=== PATIENT | female | born 1955 | race Caucasian/White ===

== ENCOUNTER 2023-03-14 07:22 | Day surgery (SDC) | payer OTHER, MEDICARE ==
[~2023-03-14] VITALS: Ht 154.9 cm; Wt 86.2 kg
[~2023-03-14 07:22] MED LIST: ALBU90OI6 INH; ALBU90OI61 INH; ASCO500 PO; ASPI81EC PO; BUPR150ER PO; CEPH500 PO; CYAN1000I IM; CYCL10 PO; Calcium + Vita1 EACH PO; DOCU100 PO; ESTR2 PO; FAMO20 PO; FISH1000 PO; Fergon240 M1 PO; Flomax0.4 MG PO; HYDACE7.5 PO; Hydrocodone-Ap1 EA20 PO; IBUP800 PO; INSUGL100V SC; INSULANPEN SC; LEVFLO500 PO; LOVA20 PO; LOVA40 PO; Lisinopril-Hct1 EAC4 PO; MELO7.5 PO; METF500 PO; Multivitamin1 EAC1 PO; Norco 5-325 Ta1 EACH PO; OMEP40CA12 PO; Omega 3 Fish O1 EACH PO; PARO20 PO; PARO30 PO; PREG100 PO; PREG200 PO; PROP10 PO; Sleep Aid25 M1 PO; Tylenol325 MG PO; VITAMIN D-32000 UNIT PO; ZESTORETIC 20-251 EA PO; Zofran Odt4 MG PO; [UNRECOGNIZED DRUG - OTHER] PO
[2023-03-14 08:18] VITALS: BP 109/70
--- NOTE | 2023-03-14 08:38 | NUR ---
PT TO SDS VIA WC. PER PT, SHE CAN AMBULATE WITHOUT ASSISTANCE BUT USES THE WC FOR LONG DISTANCES. History, Chart, Medications and Allergies reviewed before start of procedure. Lungs clear T/O to Auscultation. PT STATES SHE HAS NOT EATEN ANYTHING SINCE YESTERDAY, BUT DID TAKE A DRINK OF WATER THIS AM. DR ESCALANTE NOTIFIED AND OKAY TO PROCEED. Pre-Op teaching done. Pt verbalizes understanding. Patient States Post-Procedure ride home has been arranged. PT BLOOD SUGAR OF [address] ESCALANTE, NO FURTHER ORDERS, OKAY TO PROCEED.
--- NOTE | 2023-03-14 08:53 | NUR ---
03/14/23 0853 Ruby Donnelly 0849- MONITOR INTACT WITH CONTINUOUS PULSE OXIMETRY, CONTINUOUS END TITAL CO2, AND INTERMITTENT BLOOD PRESSURE.
[2023-03-14 09:20] VITALS: BP 114/70
[2023-03-14 09:27] VITALS: BP 116/86
--- NOTE | 2023-03-14 09:41 | NUR ---
DISCHARGE PT A&OX4, VSS/RA, JESUS PO, IV DC'D, DC INS PROVIDED, PT REP UNDERSTANDING THOSE INSTRUCTIONS. LEFT VIA WC WITH ALL PERSONAL POSSESSIONS TO GO HOME. AUTOMOBILE DETAILER DID NOT ANSWER PHONE CALL, PT WAITING IN WAITING AREA OUTSIDE DAYSURGERY.
== END 2023-03-15 22:32 | disposition home or self-care (01) ==
LOC: ORSCMMR 07:22 → ORD 08:45 → ORSCMMR 08:45 → ORD 10:00 → ORSCMMR 03-15 22:32
PROVIDERS: Internal Medicine Gastroenterology
PROC: 0DBL8ZX Excision of Transverse Colon, Via Natural or Artificial Opening Endoscopic, Diagnostic (ICD-10-PCS; principal; 2023-03-14 08:45)
DX: R19.7 Diarrhea, unspecified (principal); Z86.010 Personal history of colon polyps; D12.3 Benign neoplasm of transverse colon; K57.30 Diverticulosis of large intestine without perforation or abscess without bleeding; K64.8 Other hemorrhoids; K21.9 Gastro-esophageal reflux disease without esophagitis; E11.9 Type 2 diabetes mellitus without complications; J44.9 Chronic obstructive pulmonary disease, unspecified; G47.33 Obstructive sleep apnea (adult) (pediatric); E66.9 Obesity, unspecified; Z68.35 Body mass index [BMI] 35.0-35.9, adult
CPT/HCPCS: 82947; 88305; J2704; J7120

== ENCOUNTER 2023-06-06 23:17 | Inpatient (IN) | payer OTHER, MEDICARE ==
[~2023-06-06] VITALS: Ht 154.9 cm; Wt 87.0 kg
[~2023-06-06 23:17] MED LIST changes: -INSUGL100V SC; +INSULIN GL100 UNIT/2 SC
[2023-06-07 00:42] LABS: BASOPHILS ABSOLUTE AUTO 0.02 K/mm3 (0.00-0.23); BASOPHILS PERCENT AUTO 0 % (0-2); EOSINOPHILS ABSOLUTE AUTO 0.07 K/mm3 (0.00-0.68); EOSINOPHILS PERCENT AUTO 1 % (0-6); Hemoglobin 12.1 g/dL (11.5-16.0); IMMATURE GRAN ABSOLUTE AUTO 0.09 K/mm3 (0.00-0.10); IMMATURE GRAN PERCENT AUTO 1 % (0-1); LYMPHOCYTES ABSOLUTE AUTO 1.92 K/mm3 (0.84-5.20); LYMPHOCYTES PERCENT AUTO 15 % (21-46); MONOCYTES ABSOLUTE AUTO 0.75 K/mm3 (0.16-1.47); MONOCYTES PERCENT AUTO 6 % (4-13); Mean Corpuscular HGB 30.2 pg (26.0-34.0); Mean Corpuscular HGB Conc 33.6 g/dL (31.5-36.5); Mean Corpuscular Volume 90 fL (80-100); Mean Platelet Volume 11.1 fL (9.1-12.4); NEUTROPHILS ABSOLUTE AUTO 9.89 K/mm3 (1.96-9.15); NEUTROPHILS PERCENT AUTO 78 % (41-73); Platelet Count 343 K/mm3 (150-400); RDW Coefficient Variation 13.8 % (11.7-14.2); RDW Standard Deviation 45.3 fL (35.1-46.3); Red Blood Cell Count 4.01 M/mm3 (3.80-5.20); White Blood Cell Count 12.74 K/mm3 (4.00-11.30)
[2023-06-07 01:03] LABS: Base Excess Venous -7.5 mmol/L; Bicarbonate Venous 18.5 mmol/L (24.0-30.0); PCO2 Venous 40.7 mmHg (38-42); pH Blood Venous 7.28 (7.34-7.37)
[2023-06-07 01:13] LABS: Albumin, Blood 2.9 g/dL (3.4-5.0); Albumin/Globulin Ratio 0.5 (0.8-1.8); Beta-hydroxybutyrate 5.1 mg/dL (0.2-2.8); Bilirubin, Total 0.2 mg/dL (0.1-1.0); Calcium, Blood 8.9 mg/dL (8.5-10.1); Creatinine, Blood 4.11 mg/dL (0.40-1.00); Globulin, Blood 5.3 g/dL (2.2-4.0); Magnesium, Blood 1.7 mg/dL (1.6-2.4); Phosphorus, Blood 3.4 mg/dL (2.5-4.9); Potassium, Blood 4.7 mmol/L (3.5-5.5); Thyroid Stimulating Hormone 0.327 uIU/mL (0.360-4.800); Total Protein, Blood 8.2 g/dL (6.4-8.2)
[2023-06-07 03:05] LABS: Influenza A, PCR NEGATIVE (NEGATIVE); Influenza B, PCR NEGATIVE (NEGATIVE); Resp Syncytial Virus, PCR NEGATIVE (NEGATIVE); SARS-Cov-2 (COVID-19) PCR, MMC NEGATIVE (NEGATIVE)
[2023-06-07 04:00] VITALS: BP 148/108
[2023-06-07 04:39] LABS: BASOPHILS ABSOLUTE AUTO 0.03 K/mm3 (0.00-0.23); BASOPHILS PERCENT AUTO 0 % (0-2); EOSINOPHILS ABSOLUTE AUTO 0.08 K/mm3 (0.00-0.68); EOSINOPHILS PERCENT AUTO 1 % (0-6); Hematocrit 32.6 % (33.0-51.0); IMMATURE GRAN ABSOLUTE AUTO 0.08 K/mm3 (0.00-0.10); IMMATURE GRAN PERCENT AUTO 1 % (0-1); LYMPHOCYTES ABSOLUTE AUTO 1.96 K/mm3 (0.84-5.20); LYMPHOCYTES PERCENT AUTO 18 % (21-46); MONOCYTES ABSOLUTE AUTO 0.74 K/mm3 (0.16-1.47); MONOCYTES PERCENT AUTO 7 % (4-13); Mean Corpuscular HGB Conc 33.7 g/dL (31.5-36.5); Mean Corpuscular Volume 89 fL (80-100); Mean Platelet Volume 11.1 fL (9.1-12.4); NEUTROPHILS ABSOLUTE AUTO 8.32 K/mm3 (1.96-9.15); NEUTROPHILS PERCENT AUTO 74 % (41-73); Platelet Count 311 K/mm3 (150-400); RDW Coefficient Variation 13.7 % (11.7-14.2); RDW Standard Deviation 44.9 fL (35.1-46.3); Red Blood Cell Count 3.67 M/mm3 (3.80-5.20); White Blood Cell Count 11.21 K/mm3 (4.00-11.30)
[2023-06-07 04:54] LABS: Source, Urine Clean Catch
[2023-06-07 05:01] LABS: Albumin, Blood 2.7 g/dL (3.4-5.0); Albumin/Globulin Ratio 0.6 (0.8-1.8); Bilirubin, Total 0.3 mg/dL (0.1-1.0); Bun/Creatinine Ratio 20.1 (12.0-20.0); Calcium, Blood 8.7 mg/dL (8.5-10.1); Creatinine, Blood 3.38 mg/dL (0.40-1.00); Globulin, Blood 4.9 g/dL (2.2-4.0); Potassium, Blood 4.4 mmol/L (3.5-5.5); Total Protein, Blood 7.6 g/dL (6.4-8.2)
[2023-06-07 05:09] LABS: Bilirubin, Urine Neg (Neg); Blood, Urine 1+ (Neg); Glucose Qualitative, Urine 3+ (Neg); Ketones, Urine Neg (Neg); Leukocyte Esterase, Urine Neg (Neg); Nitrite, Urine Neg (Neg); Protein, Urine 2+ (Neg); Specific Gravity, Urine 1.015 (1.003-1.022); Urobilinogen, Urine NORM (Normal)
[2023-06-07 05:18] LABS: Appearance, Urine Clear (Clear); Color, Urine Yellow (P-Yellow)
[2023-06-07 05:20] LABS: Bacteria Not Seen /hpf; Red Blood Cells, Urine 0-2 /hpf (0-2); Squamous Epithelial Cells Rare /hpf (Few); White Blood Cells, Urine 0-2 /hpf (0-5)
--- NOTE | 2023-06-07 06:35 | NUR ---
EOS: NO CHANGES FROM ADMISSION ASSESSMENT WHICH MEDICATION RECONCILLIATIONIS INCOMPLETE PATIENT IS MINORLY POOR HISTORIAN WITH DOSING, SHE IS GOING TO CALL HER DAUGHTER TO BRING IN UPDATED MEDLIST. PATIENT A/O X 3-4 WITH VERY LIMITED ROM OF BUE AND BLE. NECK SPECIFICALLY IS LIMITED IWHT INCREASED PAIN, DENIES CHEST PAIN PRESSURE OR SOB. PATIENT WAS MINORLY RETAINING URINE, ABLE TO VOID, PURWICK IN PLACE, TOLERATING WELL, CURRENLTY INFUSING LR AND SLEEPING COMFORTABLY AFTER TREATMENT WITH TYLENOL AND REPOSITIONING.
[2023-06-07 07:32] VITALS: BP 132/73
[2023-06-07 08:28] LABS: Percent Saturation 11.1 % (15.0-50.0)
[2023-06-07 11:50] VITALS: BP 136/82
--- NOTE | 2023-06-07 14:19 | NUR ---
1200 UPDATE PT REMAINS A/OX4 WITH LIMITED ROM D/T PAIN. PT ABLE TO AMBULATE TO THE BATHROOM USINF FWW/GB AND 1-2 PER ASSIST. PT WAS ABLE TO GET INTO THE SHOWER WITH ASSISTANCE. PT CONTINUES TO ENDORSE GENERALIZED PAIN WITH NO RELIEF FROM TYLENOL. NOTIFIED AND LOW ORDERED. LR RUNNING PER ORDER, NS TO RUN AFTER LR IS COMPLETE PER FORTUNATO RAMSEY. PT ABLE TO MOVE SELF IN BED SLOWLY TO REPORSITION HER SELF, REQURING BOSTING IN BED FOR COMFORT. DAUGHTER AT BEDSIDE.
[2023-06-07 16:01] VITALS: BP 139/73
--- NOTE | 2023-06-07 16:53 | NUR ---
SHIFT SUMMARY PT A/OX4 AND COOPERATIVE OF CARE. PT ABLE TO EXPRESS NEEDS AND CALLS APPROPIATELY. PT VSS THROUGHOUT SHIFT WITH O2 SATS IN THE 90'S ON RA. PT CONTINUED TO HAVE LIMITED ROM OF EXTREMITIES, TREATED WITH TYLENOL, NO RLIEF. MD ORDERED NORCO, SEE ORDERS, PT REPORTS SOME RELIEF. HEAT PAD APPLIED FOR NECK PAIN. PT ABLE TO AMBULATE TO THE BATHROOM USING FWW/GB AND 1 STAFF MEMBER TO MANAGE LINES. PUREWICK IN PLACE, YELLOW URINE. NS RUNNING PER ORDER.
[2023-06-07 20:01] VITALS: BP 122/70
[2023-06-08 00:45] VITALS: BP 133/94
--- NOTE | 2023-06-08 00:52 | NUR ---
ASSUMPTION OF CARE: PATIENT IS ALERT AND ORIENTED, PAIN HAS BEEN VARYING, APPEARS TO CONTROLLED WITH THE NORCO. VSS. AFEBRILE. PATIENT HAS BEENS COOPERATIVE WITH CARE. 1 PERSON ASSIST WITH FWW PATIENT SLOW BUT IMPROVING. DENIES CHEST APIN PRESSURE OR SOB. INFUSING NS. NO ACTIVE CONCERNS FROM PATIENT AT THIS TIME. SPO2 >98% ON RA. DENIES NEED FOR BM, PURWICK AND ATTENDS IN PLACE.
--- NOTE | 2023-06-08 04:12 | NUR ---
EOS: NO CHANGES FROM ASSUMPTION OF CARE. RECOMMEND STATUS CHANGE. DENIES CHEST PAIN PRESSURE OR SOB. WILL CONTINUE TO MONITOR. VSS. NS STILL INFUSING.
[2023-06-08 04:39] VITALS: BP 134/74
[2023-06-08 05:30] LABS: Hematocrit 33.6 % (33.0-51.0); Hemoglobin 11.3 g/dL (11.5-16.0); Mean Corpuscular HGB 29.8 pg (26.0-34.0); Mean Corpuscular HGB Conc 33.6 g/dL (31.5-36.5); Mean Corpuscular Volume 89 fL (80-100); Platelet Count 338 K/mm3 (150-400); RDW Coefficient Variation 13.6 % (11.7-14.2); RDW Standard Deviation 44.6 fL (35.1-46.3); Red Blood Cell Count 3.79 M/mm3 (3.80-5.20)
[2023-06-08 05:56] LABS: Albumin, Blood 2.7 g/dL (3.4-5.0); Anion Gap 7 mmol/L (6-16); Blood Urea Nitrogen 47 mg/dL (8-24); Bun/Creatinine Ratio 28.5 (12.0-20.0); CO2, Blood 22 mmol/L (21-32); Calcium, Blood 9.3 mg/dL (8.5-10.1); Chloride, Blood 111 mmol/L (98-108); Creatinine, Blood 1.65 mg/dL (0.40-1.00); Glomerular Filtration Rate 34 (60-); Glucose, Blood 163 mg/dL (70-99); Magnesium, Blood 1.6 mg/dL (1.6-2.4); Phosphorus, Blood 2.6 mg/dL (2.5-4.9); Potassium, Blood 4.4 mmol/L (3.5-5.5); Sodium, Blood 140 mmol/L (136-145)
[2023-06-08 07:11] VITALS: BP 131/89
--- NOTE | 2023-06-08 09:42 | NUR ---
AM NOTE: PATIENT ALERT AND ORIENTED X4. ON ROOM AIR SATING ABOVE 95%. DENIES SOB. TELE SHOWING SR WITH LBBB. BP STABLE. DENIES CHEST PAIN/PRESSURE. BOWEL TONES PRESENT. UP TO BATHROOM WITH ONE PERSON AND WALKER. EATING AND VOIDING WNL. IV FLUIDS CONTINUE TO INFUSE. CALL LIGHT IN REACH. UP IN RECLINER. DR. BUCIO AND DR. GODWIN BY THIS AM. POSSIBLE DC THIS AFTERNOON.
[2023-06-08] MEDS ORDERED: OMEP20ER PO (11:04)
--- NOTE | 2023-06-08 11:52 | NUR ---
DISCHARGE: NO ACUTE CHANGES, SISTER AT BEDSIDE FOR DISCHARGE. THIS RN EDUCATED ON STOPPED MEDICATIONS, DOSE CHANGE TO INSULIN, FOLLOW UP APPOINTMENTS AND SIGNS/SYMPTOMS OF WHEN TO RETURN. IV'S REMOVED WNL. PATIENT LEFT UNIT WITH ALL PERSONAL BELONGINGS AND DISCHARGE PACKET VIA WHEELCHAIR.
== END 2023-06-08 11:40 | disposition home or self-care (01) | DRG 683 ==
LOC: ER 23:17 → PCU 06-07 03:32
PROVIDERS: Emergency Medicine; Internal Medicine Nephrology; ADMIT Student in an Organized Health Care Education/Training Program
DX: N17.9 Acute kidney failure, unspecified (principal); E87.1 Hypo-osmolality and hyponatremia; E87.20 Acidosis, unspecified; G89.29 Other chronic pain; N18.9 Chronic kidney disease, unspecified; F32.A Depression, unspecified; E11.22 Type 2 diabetes mellitus with diabetic chronic kidney disease; I44.7 Left bundle-branch block, unspecified; E66.9 Obesity, unspecified; K57.30 Diverticulosis of large intestine without perforation or abscess without bleeding; E03.8 Other specified hypothyroidism; N20.0 Calculus of kidney; I12.9 Hypertensive chronic kidney disease with stage 1 through stage 4 chronic kidney disease, or unspecified chronic kidney disease; E86.0 Dehydration; E11.40 Type 2 diabetes mellitus with diabetic neuropathy, unspecified; D63.1 Anemia in chronic kidney disease; E78.5 Hyperlipidemia, unspecified; K52.9 Noninfective gastroenteritis and colitis, unspecified; K64.8 Other hemorrhoids; R56.9 Unspecified convulsions; E88.09 Other disorders of plasma-protein metabolism, not elsewhere classified; R31.29 Other microscopic hematuria; D72.829 Elevated white blood cell count, unspecified; Z88.8 Allergy status to other drugs, medicaments and biological substances; Z88.6 Allergy status to analgesic agent; Z79.4 Long term (current) use of insulin; Z79.84 Long term (current) use of oral hypoglycemic drugs; Z79.1 Long term (current) use of non-steroidal anti-inflammatories (NSAID); Z79.891 Long term (current) use of opiate analgesic; Z68.34 Body mass index [BMI] 34.0-34.9, adult
CPT/HCPCS: 0241U; 36415; 71046; 76770; 80053; 80069; 81001; 82010; 82570; 82728; 82803; 82947; 83036; 83540; 83550; 83735; 84100; 84300; 84439; 84443; 84484; 85025; 85027; 93005; 93010; 94760; 96360; 99285-25; A9270; J1644; J1815; J7030; J7120

== ENCOUNTER 2023-08-01 12:35 | Inpatient (IN) | payer OTHER, MEDICARE ==
[~2023-08-01] VITALS: Ht 165.1 cm; Wt 90.4 kg
[~2023-08-01 12:35] MED LIST changes: +OMEP20ER PO
[2023-08-01] MEDS ORDERED: NS 1,000 ML IV SCH ×2 (12:40→18:40)
[2023-08-01] MEDS ORDERED: Ondansetron HCl 2 MG / ML 2ML Vial IV ONE (12:40)
[2023-08-01] MEDS ORDERED: DOXYCYCLINE HY100 M1 PO (13:08)
[2023-08-01 13:17] LABS: Source, Urine Clean Catch
[2023-08-01 13:22] LABS: BASOPHILS ABSOLUTE AUTO 0.04 K/mm3 (0.00-0.23); BASOPHILS PERCENT AUTO 0 % (0-2); EOSINOPHILS ABSOLUTE AUTO 0.05 K/mm3 (0.00-0.68); EOSINOPHILS PERCENT AUTO 0 % (0-6); Hematocrit 42.9 % (33.0-51.0); Hemoglobin 13.1 g/dL (11.5-16.0); IMMATURE GRAN ABSOLUTE AUTO 0.08 K/mm3 (0.00-0.10); IMMATURE GRAN PERCENT AUTO 0 % (0-1); LYMPHOCYTES ABSOLUTE AUTO 2.58 K/mm3 (0.84-5.20); LYMPHOCYTES PERCENT AUTO 14 % (21-46); MONOCYTES ABSOLUTE AUTO 1.55 K/mm3 (0.16-1.47); MONOCYTES PERCENT AUTO 9 % (4-13); Mean Corpuscular HGB 28.1 pg (26.0-34.0); Mean Corpuscular HGB Conc 30.5 g/dL (31.5-36.5); Mean Corpuscular Volume 92 fL (80-100); Mean Platelet Volume 11.8 fL (9.1-12.4); NEUTROPHILS ABSOLUTE AUTO 13.75 K/mm3 (1.96-9.15); NEUTROPHILS PERCENT AUTO 76 % (41-73); Platelet Count 430 K/mm3 (150-400); RDW Coefficient Variation 15.8 % (11.7-14.2); RDW Standard Deviation 51.9 fL (35.1-46.3); Red Blood Cell Count 4.67 M/mm3 (3.80-5.20); White Blood Cell Count 18.05 K/mm3 (4.00-11.30)
[2023-08-01 13:23] LABS: Appearance, Urine Clear (Clear); Bilirubin, Urine Neg (Neg); Blood, Urine 5+ (Neg); Color, Urine Yellow (P-Yellow); Glucose Qualitative, Urine 4+ (Neg); Ketones, Urine 1+ (Neg); Leukocyte Esterase, Urine Neg (Neg); Nitrite, Urine Neg (Neg); Protein, Urine 3+ (Neg); Specific Gravity, Urine 1.025 (1.003-1.022); Urobilinogen, Urine NORM (Normal)
[2023-08-01 13:42] LABS: Amorphous Mod (0-Heavy); Bacteria Few /hpf; Granular Casts 0-2 /lpf (0); Hyaline Casts 0-2 /lpf (0-2); Squamous Epithelial Cells Few /hpf (Few); Transitional Epithelial Cells Rare /hpf (0-Rare); Yeast/Fungi Urine Few /hpf
[2023-08-01 14:10] LABS: Albumin, Blood 3.2 g/dL (3.4-5.0); Albumin/Globulin Ratio 0.8 (0.8-1.8); Bilirubin, Total 1.5 mg/dL (0.1-1.0); Bun/Creatinine Ratio 30.6 (12.0-20.0); Calcium, Blood 9.1 mg/dL (8.5-10.1); Creatinine, Blood 1.11 mg/dL (0.40-1.00); Globulin, Blood 4.1 g/dL (2.2-4.0); Potassium, Blood 4.9 mmol/L (3.5-5.5); Total Protein, Blood 7.3 g/dL (6.4-8.2)
[2023-08-01 14:48] LABS: Acetaminophen, Random <2.0 ug/mL (10.0-30.0)
[2023-08-01 16:52] LABS: International Normalized Ratio 2.13; Prothrombin Time Results 21.4 Sec (9.7-11.5)
[2023-08-01] MEDS ORDERED: Albuterol 2.5 MG/3 ML VIAL INH PRN (18:35)
[2023-08-01] MEDS ORDERED: Ondansetron HCl 2 MG / ML 2ML Vial IV PRN (18:40)
[2023-08-01] MEDS ORDERED: FLU VACC QS2023-24(6MOS UP)/PF 60 MCG/0.5 ML SYRINGE IM SCH (18:40)
[2023-08-01 18:45] LABS: U Amphetamine Screen Not Detected; U Barbituate Screen Not Detected; U Benzodiazapine Screen Not Detected; U Buprenorphine Screen Not Detected; U Cannabinoids Screen DETECTED; U Cocaine Screen Not Detected; U Methadone Screen Not Detected; U Methamphetamine Screen Not Detected; U Opiates Screen Not Detected; U Oxycodone Screen Not Detected; U Phencyclidine Screen Not Detected
[2023-08-01 18:45] LABS: Magnesium, Blood 1.6 mg/dL (1.6-2.4)
[2023-08-01 20:17] VITALS: BP 142/97
[2023-08-01] MEDS ORDERED: Pregabalin 50 MG Capsule PO SCH (21:00)
--- NOTE | 2023-08-02 00:04 | NUR ---
TRANSFER NOTE PT ARRIVED FROM ER. PT ABLE TO STAND AND PIVOT ON TO BED WITH STAND BY ASSIST. PT USES A WALKER AT HOME NEEDED AT BASELINE. PT NOT ON FLUIDS UPON ARRIVAL. PT DENIED N/V/D UPON ARRIVAL. PT SKIN CLEAR EXCEPT FOR AN OLD HEALED SCAR ALONG L CHEEK. PT DENIED PAIN OR TENDERNESS WITH ABDOMINAL ASSESSMENT. PT HAS CONTINUOS BLOOD GLUCOSE MONITORING IN PLACE. LUNGS CLEAR, DENIES PAIN CURRENTLY. PT HUNGRY AND TIRED UPON ARRIVAL. PT GIVEN A SNACK WHICH SHE HELD DOWN FINE AND DENIED NAUSUA FOLLOWING. 08/02/23 FRED PALAFOX RN
[2023-08-02 03:28] VITALS: BP 152/90
[2023-08-02] MEDS ORDERED: Omeprazole 20 MG CapCR PO SCH (06:00)
[2023-08-02 06:01] LABS: BASOPHILS ABSOLUTE AUTO 0.03 K/mm3 (0.00-0.23); BASOPHILS PERCENT AUTO 0 % (0-2); EOSINOPHILS PERCENT AUTO 1 % (0-6); Hemoglobin 12.4 g/dL (11.5-16.0); IMMATURE GRAN ABSOLUTE AUTO 0.08 K/mm3 (0.00-0.10); IMMATURE GRAN PERCENT AUTO 1 % (0-1); LYMPHOCYTES ABSOLUTE AUTO 2.28 K/mm3 (0.84-5.20); LYMPHOCYTES PERCENT AUTO 14 % (21-46); MONOCYTES ABSOLUTE AUTO 1.58 K/mm3 (0.16-1.47); MONOCYTES PERCENT AUTO 10 % (4-13); Mean Corpuscular Volume 94 fL (80-100); NEUTROPHILS ABSOLUTE AUTO 11.83 K/mm3 (1.96-9.15); NEUTROPHILS PERCENT AUTO 75 % (41-73); NRBC ABSOLUTE 0.02 K/mm3 (0.00-0.02); NRBC Auto 0.1 /100 WBC (0.0-0.2); Platelet Count 341 K/mm3 (150-400); RDW Coefficient Variation 15.7 % (11.7-14.2); RDW Standard Deviation 52.6 fL (35.1-46.3); Red Blood Cell Count 4.28 M/mm3 (3.80-5.20)
[2023-08-02 06:34] LABS: Magnesium, Blood 1.7 mg/dL (1.6-2.4)
[2023-08-02 06:36] LABS: International Normalized Ratio 2.12; Prothrombin Time Results 21.3 Sec (9.7-11.5)
[2023-08-02 06:48] LABS: Albumin/Globulin Ratio 0.8 (0.8-1.8); Bilirubin, Total 1.4 mg/dL (0.1-1.0); Bun/Creatinine Ratio 32.4 (12.0-20.0); Calcium, Blood 8.4 mg/dL (8.5-10.1); Creatinine, Blood 1.05 mg/dL (0.40-1.00); Globulin, Blood 3.6 g/dL (2.2-4.0); Potassium, Blood 4.1 mmol/L (3.5-5.5); Total Protein, Blood 6.6 g/dL (6.4-8.2)
[2023-08-02] MEDS ORDERED: Insulin Human Lispro 100 Units/ML 3ML Syringe SC SCH (07:30)
[2023-08-02 07:52] VITALS: BP 159/107
[2023-08-02] MEDS ORDERED: PARoxetine HCl 20 MG Tab PO SCH (09:00)
[2023-08-02] MEDS ORDERED: Insulin Glargine-Yfgn 100 Unit/mL 3 ML SYR SC SCH (09:00)
[2023-08-02] MEDS ORDERED: buPROPion HCL 150 MG TAB.SR.12H PO SCH (09:00)
[2023-08-02 15:14] VITALS: BP 146/100
--- NOTE | 2023-08-02 15:27 | NUR ---
NOTE PT DAUGHTER FOUND HER AWAKE TRYING TO GET HER IV OUT AND HAD TAKEN HER ARM BAND OFF. ERPL;ACED HER ARM BAND. IV STILL GOOD. IVF INFUSING. PT AWAKE. SHE ALERT TO PLACE, EVENT. SHE HAS NO IDEA WHY SHE TRIED. CARE ONGOING.
--- NOTE | 2023-08-02 17:12 | NUR ---
NOTE PT SITTING AT BEDSIDE. VSS. IVF INFUSING AT 100 ML/HR. VOIDED X2 PER BSC. UP WITH FWW AND 1 ASSIST D/T IV POLE. VSS. LESS SLEEPY THIS AFTERNOON. DAUGHTER AT BEDSIDE. PT HAS PICKY FINGERS. TRIED TO REMOVE HER IV, RIPPED APART HER ID BAND. PT IS ORIENTED TO EVENT AND PLACE. DOESN'T LIEK THE FOOD. BED ALARM ON FOR FALL PREVENTION. SHE IS PETITE. HER FEET ARE SEVERAL INCHES FROM THE FLOOR. BED LOW AND LOCKED. SKID SOCKS ON. CARE ONGOING.
[2023-08-02 19:26] VITALS: BP 146/94
[2023-08-02] MEDS ORDERED: Calcium Carbonate 500 MG Tab Chew PO PRN (22:00)
--- NOTE | 2023-08-03 03:14 | NUR ---
SHIFT SUMMARY PT A&O X4. UPON MY ARRIVAL FAMILY AT BEDSIDE STATED SHE KEPT TRYING TO PULL OUT HER IV. THIS WAS NOT WHITNESSED BY THIS NURSE. PT IV PATENCY WAS CHECKED, PT DENIES PAIN OR DISCOMFORT AT SITE. IV RUNNING NS 100ML/HR. IV WAS WRAPPED WITH ADDITIONAL COBAN AND PT DID NOT MESS WITH THE IV THE REST OF THE SHIFT. PT DID STAY UP MOST OF THE NIGHT. PT WOULD SIT ON THE EDGE OF THE BED FOR EXTENDED PERIODS OF TIME THROUGH THE NIGHT REPORTING IT MADE HER MORE COMFORTABLE, THEN LAY DOWN FOR ABOUT AN HOUR BEFORE SITTING UP AGAIN. FAMILY AT BEDSIDE UPON MY ARRIVAL STATING THAT PT HAS HEARTBURN ISSUES. VO RECIEVED TO INCREASE PRILOSED TO 40MG AND ADD TUMS TID PRN. PT WAS GIVEN THE TUMS AND VERBALIZED SOME RELIEF. PT UP AMBULATING WITH WALKER AND STAND BY ASSIST TO BATHROOM NEEDED. NO PRN INSULIN GIVEN FOR NOC MED PASS. 08/03/23 FRED PALAFOX RN
[2023-08-03 04:35] VITALS: BP 154/102
[2023-08-03] MEDS ORDERED: Omeprazole 20 MG CapCR PO SCH (06:00)
[2023-08-03 07:39] VITALS: BP 155/112
[2023-08-03 07:48] LABS: Albumin, Blood 2.9 g/dL (3.4-5.0); Albumin/Globulin Ratio 0.8 (0.8-1.8); Bilirubin, Total 1.3 mg/dL (0.1-1.0); Bun/Creatinine Ratio 35.6 (12.0-20.0); Calcium, Blood 7.8 mg/dL (8.5-10.1); Creatinine, Blood 0.93 mg/dL (0.40-1.00); Globulin, Blood 3.5 g/dL (2.2-4.0); Potassium, Blood 4.4 mmol/L (3.5-5.5); Total Protein, Blood 6.4 g/dL (6.4-8.2)
[2023-08-03] MEDS ORDERED: Furosemide 10 MG/ML 4ML Vial IV SCH (13:00)
[2023-08-03] MEDS ORDERED: Metoprolol Succinate 25 MG TABCR PO SCH (13:00)
[2023-08-03 15:15] VITALS: BP 143/117
[2023-08-03 16:30] LABS: HEPATITIS A ANTIBODY, IGM Negative (Negative); HEPATITIS B CORE ANTIBODY, IGM Negative (Negative); HEPATITIS B SURFACE ANTIGEN Negative (Negative); HEPATITIS C AB CIA INTERP Negative (Negative)
--- NOTE | 2023-08-03 17:07 | NUR ---
PT IS A/OX4. WITH PERIODS OF CONFUSION, FLAT AFFECT. PT NEEDED PROMPTING WHEN TAKING HER MEDICATIONS AND EATING. THE IS UP WITH ASSIST UNSTEADY ON HER FEET. THE APPEARS TO BE BREATHING EASILY AT REST WITHOUT OXYGEN. THE PTS DAUGHTER HAS BEEN AT THE BEDSIDE T/O THE DAY. MULTIPLE VISITORS IN TO SEE THE PT. CALL LIGHT IN REACH, BED AND CHAIR ALARM USED, BED IN THE LOW POSITION
[2023-08-03 17:29] LABS: HIV 1,2 COMBO ANTIGEN/ANTIBODY Negative (Negative)
[2023-08-03 19:53] VITALS: BP 126/95
[2023-08-04] MEDS ORDERED: HYDROcodone 5-APAP 325 TAB PO PRN (02:00)
[2023-08-04] MEDS ORDERED: Melatonin 5 MG Tablet PO PRN (02:05)
[2023-08-04 02:26] VITALS: BP 125/98
--- NOTE | 2023-08-04 04:11 | NUR ---
SHIFT SUMMARY PT RESTLESS THROUGH THE NIGHT. PT WAS SLEEPING FOR SHORT PERIODS OF TIME AND THEN CHANGING POSITIONS OR SITTING UP IN BED AT SIDE OF BED. PT DENYING PAIN BUT WOULD CRY OUT AND GRUNT OR SAY "OWW" WHEN MOVING HERSELF AROUND. PT MED REC REVIEWED. PT HAD NORCO ON MED REC. TO DARLENEALFREDTERRA TO START NORCO AND GIVE MELATONIN TO HELP WITH SLEEP. PT SPOUSE REPORTING THAT PT TAKES NORCO AT HOME WELL. PT GIVEN NORCO BUT THERE WAS NOT MUCH OF A CHANGE IN HER BEHAVIOR. SHE WAS STILL MOVING AROUND IN THE BED AND AWAKE FREQUENTLY. PT SPOUSE AT BEDSIDE THROUGH THE NIGHT. SPOUSE WAS QUESTIONED ON PT BASELINE MENTATION AND HE REPORTS THAT PT IS USUALLY SLOW TO ANSWER/RESPOND BUT SHE SEEMS A LITTLE BIT SLOWER NOW. SPOUSE REPORTING THAT HER BEHAVIOR THROUGH THE NIGHT IS ABNORMAL. PT WAS NOT ABLE TO TELL ME THE MONTH OR WHO THE PRESIDENT IS. SPOUSE STATED "THAT IS A LITTLE WORSE THAN NORMAL" WHEN I ASKED HIM IF THESE ARE THINGS SHE COULD TYPICALLY ANSWER. MIXED INFORMATION BEING GIVEN FROM SPOUSE AND PT DAUGHTERS. DAUGHTER REPORTING PT IS WAY OFF BASELINE WITH HER BEHAVIOR BUT SPOUSE FINDS IT ONLY "A LITTLE OFF." PT DENIED ANY ABDOMINAL PAIN WITH PALPATION, ABDOMEN SLIGHTLY DISTENDED. PT UNABLE TO TELL ME WHEN LAST BM WAS WELL. SPOUSE REPORTING SHE HAS NOT BEEN EATING MUCH FOR ABOUT A WEEK DUE TO THE N/V PRIOR TO HER ADMISSION. 08/04/23 FRED PALAFOX RN WORSE
[2023-08-04 06:20] LABS: Albumin, Blood 2.7 g/dL (3.4-5.0); Albumin/Globulin Ratio 0.8 (0.8-1.8); Bun/Creatinine Ratio 35.7 (12.0-20.0); Calcium, Blood 8.4 mg/dL (8.5-10.1); Creatinine, Blood 1.12 mg/dL (0.40-1.00); Globulin, Blood 3.4 g/dL (2.2-4.0); Potassium, Blood 4.6 mmol/L (3.5-5.5); Total Protein, Blood 6.1 g/dL (6.4-8.2)
[2023-08-04 08:59] LABS: International Normalized Ratio 2.23; Prothrombin Time Results 22.4 Sec (9.7-11.5)
[2023-08-04 15:16] VITALS: BP 137/99
--- NOTE | 2023-08-04 18:02 | NUR ---
SHIFT SUMMARY PT VERY DROWSY THIS MORNING BUT MORE AWAKE BY LUNCHTIME AND THIS AFTERNOON. WANTED TO GO HOME BUT IT WAS DECIDED FOR HER TO HAVE A STRESS TEST. FAMILY AT BEDSIDE. IN ROOM THROUGH THE DAY. NO PAIN AND WAS CONFUSED THIS MORNING BUT CLEAR THIS AFTERNOON.
[2023-08-04 20:43] VITALS: BP 108/69
[2023-08-05 03:35] VITALS: BP 99/84
--- NOTE | 2023-08-05 04:24 | NUR ---
SHIFT SUMMARY 68 YR F ADMITTED ON 08/01/23. NO ACUTE CHANGES THIS SHIFT. PT HAS BEEN CONFUSED THIS SHIFT AND AT TIMES IS UNABLE TO FOLLOW SIMPLE INSTRUCTION. SHE WAS GIVEN SEVERAL PILLS FOR EVENING MED PASS AND PUT THEM ALL IN HER MOUTH AT ONCE BUT WOULD NOT TAKE A DRINK OF WATER DESPITE BEING ENCOURAGED TO DO SO BY THE NURSE AND THE PT'S DAUGHTERS. SHE BEGAN TO GAG WHEN SHE TRIED TO SWALLOW THE PILLS DRY. SHE EVENTUALLY TOOK A DRINK OF WATER BUT SEEMED VERY CONFUSED ABOUT THE WHOLE SITUATION. PT'S DAUGHTERS STAYED THE NIGHT IN THE ROOM WITH HER. NO C/O PAIN, DISCOMFORT, OR NAUSEA THIS SHIFT. PT APPEARS TO HAVE RESTED COMFORTABLY FOR MOST OF THE NIGHT. PLAN IS FOR A STRESS TEST TODAY.
[2023-08-05 05:05] LABS: Hematocrit 42.3 % (33.0-51.0); Mean Corpuscular HGB 28.2 pg (26.0-34.0); Mean Corpuscular HGB Conc 30.7 g/dL (31.5-36.5); Mean Corpuscular Volume 92 fL (80-100); Mean Platelet Volume 12.5 fL (9.1-12.4); NRBC ABSOLUTE 0.02 K/mm3 (0.00-0.02); NRBC Auto 0.1 /100 WBC (0.0-0.2); Platelet Count 168 K/mm3 (150-400); RDW Coefficient Variation 15.9 % (11.7-14.2); RDW Standard Deviation 52.6 fL (35.1-46.3); Red Blood Cell Count 4.61 M/mm3 (3.80-5.20); White Blood Cell Count 14.05 K/mm3 (4.00-11.30)
[2023-08-05 06:41] LABS: Albumin, Blood 2.7 g/dL (3.4-5.0); Albumin/Globulin Ratio 0.7 (0.8-1.8); Bilirubin, Total 1.5 mg/dL (0.1-1.0); Bun/Creatinine Ratio 32.8 (12.0-20.0); Calcium, Blood 8.4 mg/dL (8.5-10.1); Creatinine, Blood 1.28 mg/dL (0.40-1.00); Globulin, Blood 3.8 g/dL (2.2-4.0); Potassium, Blood 4.3 mmol/L (3.5-5.5); Total Protein, Blood 6.5 g/dL (6.4-8.2)
[2023-08-05 08:20] VITALS: BP 130/90
[2023-08-05] MEDS ORDERED: Caffeine Citrated 60 MG/3 ML Vial ONE (14:30)
[2023-08-05] MEDS ORDERED: Regadenoson 0.4 MG/5 ML SYRINGE ONE (14:30)
[2023-08-05 17:06] VITALS: BP 113/85
[2023-08-05] MEDS ORDERED: Bisacodyl 10 MG Supp PR PRN (17:25)
[2023-08-05] MEDS ORDERED: Remdesivir (EUA) 200 MG in NS 250 ML IV ONE (17:30)
--- NOTE | 2023-08-05 18:52 | NUR ---
SHIFT SUMMARY PT UP TO COMMODE SEVERAL TIMES TODAY IN AN ATTEMPT TO HAVE A BM. LARGE STOOL NOTED THIS MORNING PUSHING ON ANUS BUT UNABLE TO GO. SUPPOSITORY ORDERED THIS AFTERNOON DUE TO CONTINUED INABILITY TO HAVE A BM. STRESS TEST COMPLETED TODAY WELL. FAMILY AT BEDSIDE THROUGH THE DAY AND ASSISTING WITH CARE. MORE AWAKE TODAY THAN YESTERDAY. SPEECH SLOW WITH RESPONSES.
[2023-08-05 19:42] VITALS: BP 117/81
[2023-08-05 22:19] LABS: FACTIN SMOOTH MUSCLE,IGG ELISA 5 Units (0-19); MITOCHONDRIAL (M2) AB,IGG 2.5 Units (0.0-24.9)
[2023-08-06 03:25] VITALS: BP 128/92
--- NOTE | 2023-08-06 04:03 | NUR ---
SHIFT SUMMARY 68 YR F ADMITTED ON 08/11/23. FULL CODE. NO ACUTE CHANGES THIS SHIFT. PT WAS ABLE TO HAVE A BM AT BEGINNING OF THIS SHIFT. SHE STATED SHE FELT MUCH BETTER AND WAS HAPPILY FINISHING HER DINNER WITH THE ASSISTANCE OF HER DAUGHTER. AFTER EVENING MEDS PT WENT TO SLEEP AND SLEPT FOR MOST OF THE REST OF THE NIGHT BUT DID GET UP TO USE THE BEDSIDE COMMODE.SHE STILL APPEARS TO BE CONFUSED BUT NOT MUCH THE NIGHT BEFORE. AGAIN, DAUGHTERS STAYED THE NIGHT IN THE ROOM AND ARE VERY HELPFUL W/ PT'S CARE.
[2023-08-06 05:03] LABS: BASOPHILS ABSOLUTE AUTO 0.03 K/mm3 (0.00-0.23); BASOPHILS PERCENT AUTO 0 % (0-2); EOSINOPHILS ABSOLUTE AUTO 0.38 K/mm3 (0.00-0.68); EOSINOPHILS PERCENT AUTO 3 % (0-6); Hemoglobin 12.5 g/dL (11.5-16.0); IMMATURE GRAN ABSOLUTE AUTO 0.06 K/mm3 (0.00-0.10); IMMATURE GRAN PERCENT AUTO 0 % (0-1); LYMPHOCYTES ABSOLUTE AUTO 2.07 K/mm3 (0.84-5.20); LYMPHOCYTES PERCENT AUTO 15 % (21-46); MONOCYTES ABSOLUTE AUTO 1.73 K/mm3 (0.16-1.47); MONOCYTES PERCENT AUTO 12 % (4-13); Mean Corpuscular HGB 28.1 pg (26.0-34.0); Mean Corpuscular HGB Conc 31.3 g/dL (31.5-36.5); Mean Corpuscular Volume 90 fL (80-100); Mean Platelet Volume 11.9 fL (9.1-12.4); NEUTROPHILS PERCENT AUTO 70 % (41-73); NRBC ABSOLUTE 0.02 K/mm3 (0.00-0.02); NRBC Auto 0.1 /100 WBC (0.0-0.2); Platelet Count 165 K/mm3 (150-400); RDW Coefficient Variation 15.9 % (11.7-14.2); RDW Standard Deviation 51.4 fL (35.1-46.3); Red Blood Cell Count 4.45 M/mm3 (3.80-5.20); White Blood Cell Count 14.07 K/mm3 (4.00-11.30)
[2023-08-06 05:45] LABS: Albumin, Blood 2.5 g/dL (3.4-5.0); Albumin/Globulin Ratio 0.7 (0.8-1.8); Bilirubin, Total 0.9 mg/dL (0.1-1.0); Bun/Creatinine Ratio 36.9 (12.0-20.0); Calcium, Blood 8.3 mg/dL (8.5-10.1); Creatinine, Blood 1.41 mg/dL (0.40-1.00); Globulin, Blood 3.7 g/dL (2.2-4.0); Potassium, Blood 4.2 mmol/L (3.5-5.5); Total Protein, Blood 6.2 g/dL (6.4-8.2)
[2023-08-06 07:20] VITALS: BP 99/82
[2023-08-06 11:03] VITALS: BP 138/109
[2023-08-06] MEDS ORDERED: FURO40 PO (11:18)
[2023-08-06] MEDS ORDERED: HUMALOG KW100 UNIT/1 SC (11:20)
[2023-08-06] MEDS ORDERED: METO25ER PO (11:21)
[2023-08-06] MEDS ORDERED: Furosemide 40 MG Tab PO SCH (12:00)
[2023-08-06] MEDS ORDERED: Remdesivir (EUA) 100 MG in NS 250 ML IV SCH (12:00)
[2023-08-06 13:36] LABS: ANA PATTERN Homogeneous; ANTINUCLEAR AB (ANA),HEP-2,IGG Detected (<1:80)
--- NOTE | 2023-08-06 13:43 | NUR ---
PT DC'D HOME 1145 WITH DC INSTRUCTIONS TO DAUGHTERS AND PT. INSTRUCTED TO FOLLOW UP WITH PCP AND OBTAIN A CARDIO CONSULT. WENT OVER ALL MEDICATIONS. GIVEN ORAL LASIX BEFORE DC IV WAS BAD THIS AM AND UNABLE TO GIVE IV DOSE. DR MATHEW AWARE AND ORDERED ORAL DOSE. SENT HOME WITH BELONGINGS. WHEELCHAIR OUT TO PRIVATE CAR
== END 2023-08-06 11:54 | disposition home health service (06) | DRG 441 ==
LOC: ER 12:35 → MEDS 17:31 → ENPENDDIS 08-06 10:05 → MEDS 08-06 11:54
PROVIDERS: Emergency Medicine; Internal Medicine; Nurse Practitioner Acute Care; Physician Assistant; ADMIT Hospitalist
DX: K72.00 Acute and subacute hepatic failure without coma (principal); I50.21 Acute systolic (congestive) heart failure; D68.9 Coagulation defect, unspecified; E87.20 Acidosis, unspecified; N39.0 Urinary tract infection, site not specified; I13.0 Hypertensive heart and chronic kidney disease with heart failure and stage 1 through stage 4 chronic kidney disease, or unspecified chronic kidney disease; N18.30 Chronic kidney disease, stage 3 unspecified; E11.22 Type 2 diabetes mellitus with diabetic chronic kidney disease; E78.5 Hyperlipidemia, unspecified; F32.A Depression, unspecified; K21.9 Gastro-esophageal reflux disease without esophagitis; K59.00 Constipation, unspecified; D63.1 Anemia in chronic kidney disease; E66.01 Morbid (severe) obesity due to excess calories; D72.829 Elevated white blood cell count, unspecified; G89.29 Other chronic pain; G62.9 Polyneuropathy, unspecified; Z90.49 Acquired absence of other specified parts of digestive tract; Z88.8 Allergy status to other drugs, medicaments and biological substances; Z79.2 Long term (current) use of antibiotics; Z79.51 Long term (current) use of inhaled steroids; Z79.899 Other long term (current) drug therapy; Z79.4 Long term (current) use of insulin; Z87.19 Personal history of other diseases of the digestive system
CPT/HCPCS: 36415; 71045; 74177; 78452; 80053; 80074; 81001; 82140; 82550; 82728; 82947; 82977; 83605; 83615; 83690; 83735; 83880; 84443; 85025; 85027; 85610; 86015; 86039; 86140; 86381; 87389; 93017; 93306; 93975; 94760; 96361; 96374-59; 99285-25; A9270; A9500; G0480; J0706; J1815; J1940; J2405; J2785; J7030; Q9967